=== PATIENT | male | born 1960 | race Caucasian/White ===

== ENCOUNTER 2018-12-14 14:37 | Emergency (ER) | payer SELFPAY ==
[~2018-12-14] VITALS: Ht 180.3 cm; Wt 84.5 kg
[2018-12-14 14:38] VITALS: BP 151/97
[2018-12-14] MEDS ORDERED: DIPHENHYDRAMINE 25 MG CAPSULE PO ONE (15:30)
[2018-12-14] MEDS ORDERED: DIPHENHYDRAMINE 50 MG CAPSULE ONE (15:32)
== END 2018-12-14 15:56 | disposition home or self-care (01) ==
LOC: ED 15:28
DX: L03.313 Cellulitis of chest wall (principal); L40.0 Psoriasis vulgaris
CPT/HCPCS: 99283; Q0163

== ENCOUNTER 2018-12-19 16:44 | Emergency (ER) | payer SELFPAY ==
[~2018-12-19] VITALS: Ht 180.3 cm; Wt 84.0 kg
[2018-12-19] MEDS ORDERED: DIPHENHYDRAMINE 50 MG CAPSULE ONE (17:10)
--- NOTE | 2018-12-19 17:14 | NUR ---
IN TO SEE PT WITH ERP. BENADRYL PROVIDED PER VO FOR HEAD TO TOE RASH AND ITCHING, ONSET TODAY OF NEW RASH. PRESCRIBED TWO ANTIBIOTICS AND HCTZ CREAM ON 12/14 FOR PSORIASIS/CELLULITIS.
[2018-12-19] MEDS ORDERED: FAMOTIDINE 20 MG TABLET ONE (17:22)
[2018-12-19] MEDS ORDERED: LIDOCAINE 1%-EPI 1:100K, 20ML SQ ONE (17:30)
[2018-12-19] MEDS ORDERED: FAMOTIDINE 20 MG TABLET PO ONE (17:30)
[2018-12-19] MEDS ORDERED: DIPHENHYDRAMINE 25 MG CAPSULE PO ONE (17:30)
[2018-12-19] MEDS ORDERED: LIDOCAINE-MPF 1%, 5ML ONE (17:31)
--- NOTE | 2018-12-19 17:45 | NUR ---
I&D SET UP AT BS. LIDOCAINE GIVEN TO DESTINEY SHIELDS.
[2018-12-19] MEDS ORDERED: LIDOCAINE 1%-EPI 1:100K, 30ML ONE (18:36)
--- NOTE | 2018-12-19 18:46 | NUR ---
PA IN TO I&D ABSCESS
[2018-12-19 19:12] VITALS: BP 121/62
== END 2018-12-19 19:14 | disposition home or self-care (01) ==
LOC: ED 17:58
DX: T36.1X5A Adverse effect of cephalosporins and other beta-lactam antibiotics, initial encounter (principal); T37.0X5A Adverse effect of sulfonamides, initial encounter; L02.213 Cutaneous abscess of chest wall; F19.90 Other psychoactive substance use, unspecified, uncomplicated; Y92.89 Other specified places as the place of occurrence of the external cause
CPT/HCPCS: 10060; 99284; J3490; J7512; Q0163

== ENCOUNTER 2019-05-29 07:24 | Inpatient (IN) | payer MEDICAID ==
[~2019-05-29] VITALS: Ht 180.3 cm; Wt 79.0 kg
[2019-06-01 08:26] VITALS: BP 147/97
== END 2019-06-01 12:13 | disposition home or self-care (01) | DRG 603 ==
LOC: ED 10:01 → SUATTDRO 11:09 → EDIP 12:20 → 3NE 12:37
PROVIDERS: ADMIT Family Medicine; ATTEND Family Medicine
DX: L03.113 Cellulitis of right upper limb (principal); L03.115 Cellulitis of right lower limb; L03.313 Cellulitis of chest wall; L03.116 Cellulitis of left lower limb; E87.5 Hyperkalemia; B95.62 Methicillin resistant Staphylococcus aureus infection as the cause of diseases classified elsewhere; M71.20 Synovial cyst of popliteal space [Baker], unspecified knee; T36.8X5A Adverse effect of other systemic antibiotics, initial encounter; Z87.891 Personal history of nicotine dependence; Z87.442 Personal history of urinary calculi; L40.0 Psoriasis vulgaris; Z88.1 Allergy status to other antibiotic agents; B95.1 Streptococcus, group B, as the cause of diseases classified elsewhere
CPT/HCPCS: 36415; 80048; 80307; 82040; 85025; 87040; 87070; 87077; 87147; 87186; 87205; 96365; 96375; 99285; G0378; J0295; J1885; J2270; J7030

== ENCOUNTER 2021-04-14 11:23 | Emergency (ER) | payer MEDICAID ==
[~2021-04-14] VITALS: Ht 180.3 cm; Wt 78.0 kg
[~2021-04-14 11:23] MED LIST: ACID1GRA3 PO; CLIN300C9 PO; KETO10TA PO; NICO-486 TD; PRED20TA PO
[2021-04-14] MEDS ORDERED: SODIUM CHLORIDE FLUSH 10ML SYR IVF ONE (12:00)
[2021-04-14] MEDS ORDERED: SODIUM CHLORIDE 0.9% 1,000ML IVBOLUS ONE (12:00)
[2021-04-14 12:06] VITALS: BP 115/78
[2021-04-14 12:18] LABS: BASOPHILS % (AUTO) 1 % (0-1); EOSINOPHILS % (AUTO) 1 % (1-7); LYMPHOCYTES % (AUTO) 33 % (22-44); MEAN CORPUSCULAR HEMOGLOBIN 30.2 pg (27.5-34.5); MEAN PLATELET VOLUME 8.3 fL (7.4-10.4); MONOCYTES % (AUTO) 8 % (2-9); NEUTROPHILS % (AUTO) 58 % (42-75); PLATELET COUNT 227 x10^3/uL (130-400); RED BLOOD COUNT 4.59 x10^6/uL (4.38-5.82); RED CELL DISTRIBUTION WIDTH 14.3 % (9.4-14.8)
[2021-04-14 12:23] LABS: ALANINE AMINOTRANSFERASE 51 U/L (12-78); ALBUMIN 3.4 g/dL (3.4-5.0); ANION GAP 5 mmol/L (5-15); CALCIUM 8.7 mg/dL (8.5-10.1); CHLORIDE 112 mmol/L (98-107); CREATININE 1.03 mg/dL (0.7-1.3)
[2021-04-14 12:25] LABS: ALKALINE PHOSPHATASE 77 U/L (45-117); BILIRUBIN,TOTAL 0.8 mg/dL (0.2-1.0); TOTAL PROTEIN 7.4 g/dL (6.4-8.2)
--- NOTE | 2021-04-14 12:39 | NUR ---
URINE COLLECTED/SENT TO LAB. PT IN .
[2021-04-14 13:14] LABS: MICROSCOPIC INDICATED
[2021-04-14] MEDS ORDERED: CEFTRIAXONE 1,000 MG IM ONE (13:30)
--- NOTE | 2021-04-14 14:01 | NUR ---
IVF BOLUS AND ANTIBIOTIC INFUSING PER ERP ORDER. VERIFIED WITH DR MERINO THAT ROCEPHIN 1GM IV INSTEAD OF IM SHOT. CALL LIGHT WITHIN REACH. CONTINUE TO MONITOR.
[2021-04-14] MEDS ORDERED: CEFTRIAXONE 1,000 MG IV ONE (14:30)
--- NOTE | 2021-04-14 15:03 | NUR ---
Patient given discharge instructions and Rx, they have confirmed that they understand the instructions. Patient ambulatory with steady gait. NAD, all questions answered appropriately, denies additional needs at this time. No personal belongings left in room after discharge.
== END 2021-04-14 15:05 | disposition home or self-care (01) ==
LOC: ED 14:45
DX: N45.1 Epididymitis (principal); N30.00 Acute cystitis without hematuria
CPT/HCPCS: 36415; 76870; 80053; 81001; 83605; 85025; 87077; 87086; 87186; 87491; 87591; 96365; 99284; J0696; J7030

== ENCOUNTER 2021-05-30 00:02 | Emergency (ER) | payer MEDICAID ==
[~2021-05-30] VITALS: Ht 180.3 cm; Wt 72.0 kg
[2021-05-30 00:54] LABS: MEAN CORPUSCULAR HEMOGLOBIN 30.5 pg (27.5-34.5); MEAN CORPUSCULAR HGB CONC 34.1 g/dL (33.2-36.2); MEAN PLATELET VOLUME 8.8 fL (7.4-10.4); PLATELET COUNT 241 x10^3/uL (130-400); RED BLOOD COUNT 5.29 x10^6/uL (4.38-5.82); RED CELL DISTRIBUTION WIDTH 13.6 % (9.4-14.8)
[2021-05-30 01:07] LABS: ALANINE AMINOTRANSFERASE 40 U/L (12-78); ANION GAP 5 mmol/L (5-15); CALCIUM 9.1 mg/dL (8.5-10.1); CHLORIDE 107 mmol/L (98-107); CREATININE 1.03 mg/dL (0.7-1.3)
[2021-05-30 01:09] LABS: ALKALINE PHOSPHATASE 79 U/L (45-117); BILIRUBIN,TOTAL 0.8 mg/dL (0.2-1.0); TOTAL PROTEIN 8.7 g/dL (6.4-8.2)
[2021-05-30 01:10] LABS: BASOPHILS % (AUTO) 1 % (0-1); EOSINOPHILS % (AUTO) 1 % (1-7); LYMPHOCYTES % (AUTO) 51 % (22-44); MONOCYTES % (AUTO) 8 % (2-9); NEUTROPHILS % (AUTO) 39 % (42-75)
[2021-05-30] MEDS ORDERED: HYDROmorphone 1 MG/ML, 1ML INJ IV ONE (02:30)
[2021-05-30] MEDS ORDERED: ONDANSETRON 2MG/ML, 2ML IVPush ONE (02:30)
[2021-05-30] MEDS ORDERED: KETOROLAC 30 MG/1 ML IVPush ONE (02:30)
[2021-05-30] MEDS ORDERED: SODIUM CHLORIDE FLUSH 10ML SYR IVF ONE (02:30)
[2021-05-30 02:49] LABS: MICROSCOPIC NOT IND
[2021-05-30] MEDS ORDERED: KETOROLAC 30 MG/1 ML ONE (02:53)
[2021-05-30] MEDS ORDERED: HYDROmorphone 2 MG/ML, 1ML ONE (02:53)
[2021-05-30] MEDS ORDERED: ONDANSETRON 2MG/ML, 2ML ONE (02:54)
[2021-05-30 03:04] VITALS: BP 126/88
== END 2021-05-30 04:48 | disposition home or self-care (01) ==
LOC: ED 00:12
DX: N50.811 Right testicular pain (principal); N43.2 Other hydrocele; F17.200 Nicotine dependence, unspecified, uncomplicated; Z86.19 Personal history of other infectious and parasitic diseases
CPT/HCPCS: 36415; 76870; 80053; 81003; 85025; 96374; 96375; 99284; J1170; J1885; J2405